=== PATIENT | female | born 1955 | race Caucasian/White ===

== ENCOUNTER → 2024-08-09 | Emergency (ER) | payer MEDICARE, BC ==
[~2024-08-09] VITALS: Ht 162.6 cm; Wt 69.7 kg
[~2024-08-09] MED LIST: ACET1TAB12 PO; AMOX-419 PO; AMOX1TAB87 PO; AZIT-164 PO; AZIT250T89 PO; DICY10CA88 PO; ONDA-245 PO
[2024-08-09 03:06] VITALS: BP 137/69; PULSE 110; RESP 18; O2SAT 98
[2024-08-09] MEDS: amox tr/potassium clavulanate 500mg/125mg TAB PO ONE (04:36)
[2024-08-09] MEDS: ondansetron 4mg rapidly disintigrating tab PO ONE (04:36)
[2024-08-09] MEDS: ibuprofen tablet 400 MG TABLET PO ONE (04:37)
[2024-08-09] MEDS: azithromycin 250mg tablet PO ONE (04:37)
[2024-08-09 04:44] VITALS: TEMP 98.1
== END | disposition home or self-care (01) ==
LOC: EEVIPCON 03:05 → ER 03:05
DX: J18.9 Pneumonia, unspecified organism (principal); Z90.49 Acquired absence of other specified parts of digestive tract; Z20.822 Contact with and (suspected) exposure to COVID-19
CPT/HCPCS: 36415; 71045; 87502; 87503; 87811; 93005; 99285